=== PATIENT | male | born 1995 | race Caucasian/White ===

== ENCOUNTER 2021-01-18 19:04 | Emergency (ER) | payer SELFPAY ==
[~2021-01-18 19:04] MED LIST: DELSYM30 MG/5 ML PO; FLONASE 0.05% N16 GM; NAPROSYN500 MG PO; PREDNISONE20 MG PO; ROBITUSSIN AC480 ML PO; TESSALON PERLE100 MG PO; VENTOLIN HFA 66.7 GM INH; VIBRAMYCIN100 MG PO; ZITHROMAX250 MG PO; ZYRTEC10 M3 PO
[2021-01-18 19:53] LABS: HEMOGLOBIN 16.1 gm/dl (14.0-17.5); RED BLOOD COUNT 5.15 M/UL (4.20-5.50); WHITE BLOOD COUNT 8.7 K/UL (4.5-11.0)
[2021-01-18 20:20] LABS: BUN/CREATININE RATIO 8 (0-10)
[2021-01-18] MEDS ORDERED: BENTYL 20MG TAB20 MG PO (22:51)
[2021-01-18] MEDS ORDERED: PROTONIX40 MG PO (22:51)
[2021-01-18] MEDS ORDERED: ZOFRAN ODT 4 MG4 MG PO (22:51)
== END 2021-01-18 23:45 | disposition home or self-care (01) ==
LOC: ER1 19:04
PROVIDERS: Physician Assistant
DX: K92.2 Gastrointestinal hemorrhage, unspecified (principal); J45.909 Unspecified asthma, uncomplicated; Z90.89 Acquired absence of other organs; Z88.8 Allergy status to other drugs, medicaments and biological substances
CPT/HCPCS: 80053; 81001; 82150; 82270; 83690; 85025; 96374; 99284; C9113; J7030; Q9967

== ENCOUNTER 2021-01-30 17:24 | Emergency (ER) | payer SELFPAY ==
[~2021-01-30 17:24] MED LIST changes: +BENTYL 20MG TAB20 MG PO; +PROTONIX40 MG PO; +ZOFRAN ODT 4 MG4 MG PO
[2021-01-30 20:03] LABS: HEMOGLOBIN 16.1 gm/dl (14.0-17.5); RED BLOOD COUNT 5.21 M/UL (4.20-5.50); WHITE BLOOD COUNT 9.4 K/UL (4.5-11.0)
[2021-01-30 20:26] LABS: BUN/CREATININE RATIO 15 (0-10)
[2021-01-30] MEDS ORDERED: ONDANSETRON ODT4 MG SL (21:54)
[2021-01-30] MEDS ORDERED: OMEPRAZOLE20 M1 PO (21:54)
== END 2021-01-30 22:04 | disposition home or self-care (01) ==
LOC: ER1 17:24
PROVIDERS: Physician Assistant
DX: R10.12 Left upper quadrant pain (principal); R11.2 Nausea with vomiting, unspecified; R19.7 Diarrhea, unspecified; R07.81 Pleurodynia; J45.909 Unspecified asthma, uncomplicated; Z90.89 Acquired absence of other organs; Z88.8 Allergy status to other drugs, medicaments and biological substances; Z20.822 Contact with and (suspected) exposure to COVID-19
CPT/HCPCS: 0240U; 71045; 80053; 81001; 83690; 85025; 87081; 87086; 87880; 96374; 99284; J2405; J7030

== ENCOUNTER 2021-08-07 14:23 | Emergency (ER) | payer SELFPAY ==
[~2021-08-07 14:23] MED LIST changes: +OMEPRAZOLE20 M1 PO; +ONDANSETRON ODT4 MG SL
== END 2021-08-07 15:38 | disposition home or self-care (01) ==
LOC: ER1 14:23
DX: R11.2 Nausea with vomiting, unspecified (principal); R19.7 Diarrhea, unspecified; Z88.8 Allergy status to other drugs, medicaments and biological substances
CPT/HCPCS: 99283

== ENCOUNTER 2021-10-06 13:26 | Emergency (ER) | payer SELFPAY ==
[2021-10-06 17:30] LABS: HEMOGLOBIN 16.2 gm/dl (14.0-17.5); RED BLOOD COUNT 5.3 M/UL (4.20-5.50); WHITE BLOOD COUNT 13.8 K/UL (4.5-11.0)
[2021-10-06 17:50] LABS: BUN/CREATININE RATIO 21 (0-10)
[2021-10-06] MEDS ORDERED: ZOFRAN ODT 4 MG4 MG PO (18:20)
[2021-10-06] MEDS ORDERED: ZITHROMAX250 MG PO (18:20)
== END 2021-10-06 19:00 | disposition home or self-care (01) ==
LOC: ER1 13:26
PROVIDERS: Physician Assistant
DX: R05.9 Cough, unspecified (principal); R11.10 Vomiting, unspecified; Z20.822 Contact with and (suspected) exposure to COVID-19; J45.909 Unspecified asthma, uncomplicated
CPT/HCPCS: 0240U; 71045; 80048; 82550; 82553; 84484; 85025; 96372; 99283; J1885